=== PATIENT | female | born 1965 | race Native Hawaiian/Other Pacific Islander ===

== ENCOUNTER 2016-08-23 05:37 | Day surgery (SDC) | payer OTHER ==
[~2016-08-23] VITALS: Ht 167.6 cm; Wt 99.5 kg
[~2016-08-23 05:37] MED LIST: ALEN70TA48 PO; ASPI-1061 PO; AUD NEB; BENZ-26 PO; BUDE0.5A3 NEB; BUDE10.2 IH; COMBISP IH; FLUT16H NASAL; FOLI1 PO; LEVO100 PO; LOSA25TA21 PO; LOVA20 PO; METH2.5 PO; MONT10TA21 PO; PANT40TA25 PO; PRED20 PO; SODIUM CHLORIDE 0.9% 1,000 ML IV ONE; THEO400T3 PO
[2016-08-23] MEDS ORDERED: SODIUM CHLORIDE 0.9% 1,000 ML IV ONE (06:05)
[2016-08-23] MEDS ORDERED: MIDAZOLAM HCL 2 MG/2 ML VIAL ONE (07:16)
[2016-08-23] MEDS ORDERED: FentaNYL CITRATE-PF 100 MCG/2 ML VIAL ONE (07:16)
[2016-08-23] MEDS ORDERED: MethylPREDNISolone SOD SUCC 125 MG/2 ML VIAL IVP ONE (08:45)
[2016-08-23] MEDS ORDERED: MethylPREDNISolone SOD SUCC 125 MG/2 ML VIAL ONE (08:52)
[2016-08-23] MEDS ORDERED: ALBUTEROL SULFATE 2.5 MG/0.5 ML NEB SOLUTION NEB ONE ×2 (09:32→12:00)
[2016-08-23] MEDS ORDERED: LIDOCAINE HCL 2% 30 ML JELLY TP ONE (12:00)
[2016-08-23] MEDS ORDERED: BENZOCAINE 20% 50 MCG/SPRAY 57 GM TP ONE (12:00)
[2016-08-23] MEDS ORDERED: LIDOCAINE HCL 4% 50 ML SOLUTION TP ONE (12:00)
[2016-08-23] MEDS ORDERED: OXYGEN THERAPY IH SCH (20:00)
== END 2016-08-23 10:10 | disposition home or self-care (01) ==
LOC: SURGERY 05:37
PROVIDERS: ATTEND Internal Medicine Critical Care Medicine
DX: J38.4 Edema of larynx (principal); B37.0 Candidal stomatitis; I10 Essential (primary) hypertension; J45.909 Unspecified asthma, uncomplicated; J44.9 Chronic obstructive pulmonary disease, unspecified; Z87.891 Personal history of nicotine dependence; Z98.51 Tubal ligation status
CPT/HCPCS: 31623; 31624; 71010; 87015 ×2; 87070 ×2; 87101; 87147; 87205; 87220; 87252; 88108; 88184; 88185; 88312; 94640; J2250; J2930; J3010; J7030